=== PATIENT | female | born 1985 | race Caucasian/White ===

== ENCOUNTER 2020-08-09 04:04 | Inpatient (IN) ==
[2020-08-09] MEDS ORDERED: PENICILLIN G POTASSIUM 6 MU in DEXTROSE 5% 250 ML IV STA (05:24)
[2020-08-09] MEDS ORDERED: PENICILLIN G POTASSIUM 3 MU in DEXTROSE 5% 100 ML IV PRN (05:24)
[2020-08-09] MEDS ORDERED: OXYTOCIN 30 UNITS/500 ML BAG IV PRN ×3 (05:24→21:01)
[2020-08-09 06:08] LABS: Hematocrit (blood only) 35.7 % (37-47); Hemoglobin 12.4 g/dL (12.0-16.0); Mean Corpuscular Hemoglobin 32.1 pg (25-34); Mean Corpuscular Hgb Conc 34.7 g/dL (32-36); Mean Corpuscular Volume 92.5 fL (80-100); Mean Platelet Volume 11.3 fL (7.4-10.4); Platelet Count 150 K/uL (130-400); RDW Coefficient of Variation 13.4 % (11.5-14.5); RDW Standard Deviation 45.1 fL (36.4-46.3); Red Blood Count 3.86 M/uL (4.2-5.4)
--- NOTE | 2020-08-09 08:16 | History & Physical Report ---
Date of Service August 09, 2020 Assessment & Plan (1) Supervision of normal first : Admit to L&D. Labs, EFM/toco. COVID swab. IV access. Patient elects to give full 6 hours after ROM to see if active labor begins; if not, she is agreeable to starting pitocin. Admission and Anticipated Discharge Date Admission Date: August 09, 2020 History of Present Illness Chief Complaint: SROM Primary Care Provider: NO PCP 34yo @ 40 08/13, rupture of membranes 2:40 this morning. Clear fluid. Contractions have picked up since. + movement, no vaginal bleeding. uncomplicated. Allergies Allergy/AdvReac Type Severity Reaction Status Date / Time No Known Allergies Allergy Verified 08/09/20 04:35 Home Medications Medication Instructions Recorded Confirmed Type prenat.vits,kaci,bvt-ukbk-hdbzv 1 tab PO DAILY 09/04/19 08/09/20 History Patient History Medical History Encounter for anatomic survey Encounter for pre-operative examination Miscarriage Missed ab Surgical History H/O tooth extraction with sedation Family History Grandfather (Maternal) Heart disease Father Prostate cancer Social History Smoking Status: Never smoker Second Hand Exposure: Yes (hx as a child); Hx Alcohol Use: No Hx Substance Use: No Preferred Language: Yemeni Communication Ability: Effective Visual Impairment: No Limitations Special Needs Teacher Required: No Beliefs That Will Affect Care: None marital status: marital status details: Rubens (31) [phone] Current Living Situation: Spouse Current Living Situation Comment: lives with spouse and 1 dog. 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 No s/s chorio or abruption. Skin: no rashes, warm and dry Psychiatric: A+Ox3, euthymic affect Results & Data ([facility]) Vital Signs (Past 12 Hours) Vital Signs Temp Pulse Resp BP 08/09/20 07:30 36.5 C 64 20 117/76 08/09/20 06:20 36.6 C 18 08/09/20 04:39 36.6 C 83 18 116/78 08/09/20 04:18 83 116/78 Coding Level of Care Code None Diagnoses Supervision of normal first Z34.00
[2020-08-09] MEDS: LACTATED RINGER'S 1,000 ML IV PRN ×2 (09:04→14:31)
[2020-08-09] MEDS: OXYTOCIN 30 UNITS/500 ML BAG IV PRN ×2 (09:09→20:19)
--- NOTE | 2020-08-09 12:21 | Labor Progress Brief Note ---
Date of Service August 09, 2020 Subjective Ctx picking up, in room on exercise ball. Doing well. FHT Cat 1 [place] Q 2 Pit at 7 Continue labor. Assessment & Plan Admission and Anticipated Discharge Date Admission Date: August 09, 2020 Results & Data ([facility]) Vital Signs (Past 12 Hours) Vital Signs Temp Pulse Resp BP 08/09/20 11:17 59 L 121/71 08/09/20 11:16 36.3 C L 20 08/09/20 10:07 74 118/77 08/09/20 09:11 75 120/75 08/09/20 07:30 36.5 C 64 20 117/76 08/09/20 06:20 36.6 C 18 08/09/20 04:39 36.6 C 83 18 116/78 08/09/20 04:18 83 116/78 Coding Level of Care Code None
[2020-08-09] MEDS ORDERED: BUPIVACAINE 0.25% 30 ML VIAL ONE (14:07)
[2020-08-09] MEDS ORDERED: ePHEDrine sulfate 50 MG/ML AMP ONE (14:07)
[2020-08-09] MEDS ORDERED: SODIUM CHLORIDE 0.9% INJ 10 ML VIAL ONE (14:07)
[2020-08-09] MEDS ORDERED: fentaNYL citrate 100 MCG/2 ML VIAL ONE (14:08)
[2020-08-09] MEDS ORDERED: fentaNYL 2MCG/ML ROPIVACAINE 1.25MG/ML 100 ML BAG EPI ONE (14:08)
--- NOTE | 2020-08-09 14:34 | Anesthesiology Consultation ---
Date of Service August 09, 2020 Assessment & Plan (1) Encounter for pre-operative examination: Chart Review Chart Review: Acceptable Risk for Labor Epidural Consults Requested none ASA ASA2 Proposed Anesthesia Anesthesia Type: Labor Epidural Risk / Benefits Reviewed With: PT / POA / Parent / Guardian, Accepts Plan and Informed Consent Obtained History Height/Weight Height: 5 ft 8 in Weight: 90.628 kg Allergies Allergy/AdvReac Type Severity Reaction Status Date / Time No Known Allergies Allergy Verified 08/09/20 04:35 Medications Home Medications Medication Instructions Recorded Confirmed Last Taken prenat.vits,kaci,ghd-mdoa-hfpns 1 tab PO DAILY 09/04/19 08/09/20 08/08/20 22:00 Active Medications Generic Name Dose Route Start Last Admin Trade Name Freq PRN Reason Stop Dose Admin Oxytocin 30 units in 500 mls @ 11 mls/hr 08/09/20 05:24 08/09/20 13:44 Pitocin IV 08/11/20 05:23 0.66 units/hr .Q24H PRN 11 mls/hr Labor Induction/Augmentation Titration Protocol 0.66 UNITS/HR Lactated Ringer's 1,000 mls @ 125 mls/hr 08/09/20 05:24 08/09/20 14:31 Lr IV 08/11/20 05:23 999 mls/hr .Q8H PRN Administration L&D Protocol Protocol Past Medical History Medical History Encounter for anatomic survey Encounter for pre-operative examination Miscarriage Missed ab Exercise / Class Metabolic Activity II 4-5 Yardwork/Stairs/Walk up hill Past Family History Family History Grandfather (Maternal) Heart disease Father Prostate cancer Past Surgical History Surgical History H/O tooth extraction with sedation Past Anesthesia History No Hx of Anesthesia Complications and No Family Hx of Anesthesia Complications History of PONV No Hx of PONV and No Hx of Motion Sickness Social History Smoking Status: Never smoker Hx Alcohol Use: No Alcohol type: beer and wine alcohol intake frequency: holidays/special occasions only Hx Substance Use: No substance use type: does not use Physical Exam Vital Signs Last Vital Signs Temp 97.3 F L 08/09/20 11:16 Pulse 56 L 08/09/20 13:08 Resp 20 08/09/20 11:16 BP 119/66 08/09/20 13:08 ENMT Mouth: no dentition abnormality Thyromental Distance: > or= 3.5 Finger Breadths Mallampati Class: II Neck normal visual inspection Respiratory normal respiratory effort Auscultation: lungs clear to auscultation bilaterally Cardiovascular Rate/Rhythm: regular rate and regular rhythm Testing Laboratory Results 08/09/20 05:48
[2020-08-09] MEDS ORDERED: NALOXONE HCL 0.4 MG/1 ML VIAL/CARP IV PRN (14:52)
[2020-08-09] MEDS ORDERED: diphenhydrAMINE 50 MG/ML VIAL IV PRN (14:52)
[2020-08-09] MEDS ORDERED: fentaNYL 2MCG/ML ROPIVACAINE 1.25MG/ML 100 ML BAG EPI PRN (14:52)
[2020-08-09] MEDS ORDERED: ePHEDrine sulfate 50 MG/ML AMP IV PRN (14:52)
[2020-08-09] MEDS ORDERED: NALOXONE HCL 1 MG in SODIUM CHLORIDE 0.9% 1000ML 1,000 ML IV PRN (14:52)
[2020-08-09] MEDS ORDERED: ONDANSETRON INJ 2 MG/ML 2 ML VIAL IV PRN (14:52)
--- NOTE | 2020-08-09 16:13 | Labor Progress Brief Note ---
Date of Service August 09, 2020 Subjective Comfortable with epidural. FHT Cat 1 [place] Q 3 SVE 8/100/0 Continue labor. Assessment & Plan Admission and Anticipated Discharge Date Admission Date: August 09, 2020 Results & Data ([facility]) Vital Signs (Past 12 Hours) Vital Signs Temp Pulse Resp BP Pulse Ox 08/09/20 16:09 62 98 08/09/20 16:04 78 100 08/09/20 16:01 48 L 111/62 08/09/20 15:59 51 L 97 08/09/20 15:54 54 L 97 08/09/20 15:49 56 L 98 08/09/20 15:46 54 L 111/64 08/09/20 15:44 52 L 98 08/09/20 15:39 51 L 97 08/09/20 15:34 51 L 97 08/09/20 15:31 51 L 123/69 08/09/20 15:29 52 L 99 08/09/20 15:24 51 L 98 08/09/20 15:19 50 L 98 08/09/20 15:17 48 L 115/63 08/09/20 15:14 53 L 99 08/09/20 15:09 52 L 99 08/09/20 15:04 51 L 99 08/09/20 14:59 56 L 98 08/09/20 14:55 56 L 113/63 08/09/20 14:54 53 L 97 08/09/20 14:53 54 L 117/63 08/09/20 14:51 51 L 112/64 08/09/20 14:49 55 L 117/69 99 08/09/20 14:44 62 98 08/09/20 14:39 80 100 08/09/20 14:34 61 100 08/09/20 13:08 36.7 C 56 L 20 119/66 08/09/20 11:17 59 L 121/71 08/09/20 11:16 36.3 C L 20 08/09/20 10:15 36.7 C 20 08/09/20 10:07 74 118/77 08/09/20 09:11 75 120/75 08/09/20 07:30 36.5 C 64 20 117/76 08/09/20 06:20 36.6 C 18 08/09/20 04:39 36.6 C 83 18 116/78 08/09/20 04:18 83 116/78 Coding Level of Care Code None
--- NOTE | 2020-08-09 20:50 | Delivery Summary ---
Vaginal Delivery Summary Date of Service August 09, 2020 Vaginal Delivery Summary and 2nd Degree LAC Vaginal Delivery Summary: Pre-delivery diagnoses: 34yo @ 40 1/, spontaneous labor Post-delivery diagnoses: same, mild shoulder dystocia Procedure: spontaneous vaginal delivery, repair of 1st degree perineal laceration Surgeon: Shara Alba DO Complications: none Findings: Viable male . Apgars: 8/9. Weight pending, please see nursery records. Estimated blood loss: 500ml Description of delivery: The patient progressed to complete with epidural anesthesia. She then began to push. She spontaneously vaginally delivered a viable from the cephalic presentation. The head delivered in MAGALYS position. Nuchal cord x 1, easily reduced. The anterior shoulder did not deliver immediately. The patient was then placed in McRobert's maneuver, and shoulders were rotated clockwise. The posterior shoulder delivered, followed by anterior shoulder, then followed by the body. The baby was placed on mother's abdomen and a spontaneous cry was heard. The cord was doubly clamped and cut. A segment was retained for cord gases. Cord blood was obtained. The placenta was delivered spontaneously intact with a 3-vessel cord. The uterus and vagina were swept of clots and debris. IV pitocin was given. The uterus became firm. The cervix, vagina, and perineum were inspected and a 2nd degree perineal laceration with left vaginal extension was repaired with 3-0 vicryl. Additional [id number] stitch to obtain hemostasis in superficial sub-urethral laceration. Excellent hemostasis was observed. The mother and baby are recovering in stable and good condition in the room. Sponge, needle and instrument counts were correct x 2. Shara Alba DO [facility] [place] Vaginal Delivery Charge Vaginal Delivery Codes: 60578 global code for the antepartum, delivery, and post- Delivery Type Details: and 2nd Degree LAC
[2020-08-09] MEDS ORDERED: BENZOCAINE 20% AER SPR 82.5 GM CAN EXT PRN (21:01)
[2020-08-09] MEDS ORDERED: DIPHTHERIA/TETANUS/PERTUSSIS 0.5 ML SYR/VIAL IM ONE (21:01)
[2020-08-09] MEDS ORDERED: ACETAMINOPHEN 325 MG TAB PO PRN (21:01)
[2020-08-09] MEDS ORDERED: HYDROCORTISONE ACETATE 25 MG SUPP PR PRN (21:01)
[2020-08-09] MEDS ORDERED: bisacodyL 10 MG SUPP PR PRN (21:01)
[2020-08-09] MEDS ORDERED: oxyCODONE/ACETAMINOPHEN 5mg/325mg TAB PO PRN (21:01)
[2020-08-09] MEDS ORDERED: SUPERCREAM 0.870% 15 GM JAR EXT PRN (21:01)
[2020-08-09] MEDS: ceFAZolin 1000MG 1,000 MG/7.5 ML SYR IV SCH (21:16)
[2020-08-09] MEDS: IBUPROFEN 600 MG TAB PO PRN (21:50)
[2020-08-09 23:07] LABS: Base Excess Cord Venous Blood -3.5 mEq/L (-7.7-1.9); Cord Venous Blood HCO3 21 mmol/L (18.4-26.8); Cord Venous Blood PCO2 38 mmHg (30.4-57.2); Cord Venous Blood PO2 37 mmHg (14.1-43.3); Cord Venous Blood pH 7.37 (7.20-7.44); O2 Saturation Cord Venous Bld 74.6 % (<68)
[2020-08-10] MEDS: IBUPROFEN 600 MG TAB PO PRN ×4 (02:44→20:23)
[2020-08-10] MEDS: ceFAZolin 1000MG 1,000 MG/7.5 ML SYR IV SCH ×2 (05:25→13:13)
--- NOTE | 2020-08-10 05:37 | Obstetrical Progress Note ---
Date of Service August 10, 2020 Assessment & Plan (1) Supervision of normal first : S/p Day 1 - Feels well today. Eating well, voiding well, ambulating well. - Pain well-controlled with ibuprofen 600mg Q4H PRN. - Vital signs reviewed and WNL. - Hemoglobin reviewed. 12.4 --> 10.4 (today). - Blood Type: A+, antibody negative, GBS negative, Rubella Immune, COVID-19 negative - Continue routine care: encourage ambulation, monitor and control pain with Motrin PRN, continue regular OB diet, monitor lochia - Encourage breast feeding. - After discharge, will have 6-wk follow-up with Dr. Alba Admission and Anticipated Discharge Date Admission Date: August 09, 2020 Supervising Physician Co-Signing Physician Notes Resident Physician Supervision Note: I interviewed and examined the patient. Discussed with Dr. Fishman and agree with findings and plan as documented in the note. Any exceptions or clarifications are listed here: PPD#1, doing well. Anticipate DC home tomorrow. Documented By: Shara Alba, DO Subjective HPI Sylvia Gilbert is a 34 y/o female who is PPD 1 spontaneous vaginal delivery at 40w1d. She reports feeling well overall this morning. No abdominal cramping and mild pain well managed on analgesics. Voiding well. Tolerating meals overnight without difficulty. Patient has been able to ambulate some. passing gas and no bowel movement. Has persistent lochia with some improvement this morning. Currently . Review of Systems Review of Systems: ROS Denies fever or chills. Denies shortness of breath or cough. Denies chest pain. Denies breast pain. Denies dysuria. Denies leg pain or leg swelling. Physical Exam Physical Exam: PE General: Alert, oriented. No acute distress. Cardiac: Regular rate and rhythm. No murmurs. Respiratory: Clear to auscultation bilaterally a/p, no wheezes/rales/rhonchi. No increased work of breathing. Symmetrical chest rise. No respiratory distress. Abdomen: Soft, nontender, nondistended. Bowel sounds present. Uterus: Uterine fundus firm, palpable at umbilicus. Lower Extremities: No lower extremity edema or swelling. No deep calf pain. Nhan's negative bilaterally. Results & Data ([facility]) Vital Signs (Past 12 Hours) Vital Signs Temp Pulse Pulse Resp BP BP Pulse Ox 08/10/20 03:25 36.8 C 67 18 119/73 08/09/20 23:15 36.9 C 87 18 113/71 08/09/20 22:32 92 H 130/65 08/09/20 22:30 18 08/09/20 22:00 18 08/09/20 21:56 81 104/60 08/09/20 21:46 87 107/63 08/09/20 21:36 83 109/62 08/09/20 21:30 18 08/09/20 21:26 95 H 112/70 08/09/20 21:16 83 113/68 08/09/20 21:15 18 08/09/20 21:06 76 104/58 L 08/09/20 21:00 18 08/09/20 20:56 78 103/59 L 08/09/20 20:47 88 93/46 L 08/09/20 20:45 78 18 120/74 08/09/20 20:34 82 99 08/09/20 20:30 36.9 C 85 18 110/55 L 08/09/20 20:29 88 99 08/09/20 20:24 96 H 99 08/09/20 20:19 94 H 99 08/09/20 20:15 88 115/61 08/09/20 20:14 86 99 08/09/20 20:09 97 H 98 08/09/20 20:04 104 H 98 08/09/20 20:01 20 08/09/20 20:00 144 H 114/62 08/09/20 19:59 115 H 98 08/09/20 19:57 137 H 93 08/09/20 19:54 92 H 96 08/09/20 19:51 85 89 L 08/09/20 19:49 89 100 08/09/20 19:46 18 08/09/20 19:45 64 114/65 08/09/20 19:44 69 99 08/09/20 19:39 76 99 08/09/20 19:34 56 L 99 08/09/20 19:31 18 08/09/20 19:30 57 L 118/70 08/09/20 19:29 60 98 08/09/20 19:24 59 L 99 08/09/20 19:19 56 L 98 08/09/20 19:17 53 L 123/70 08/09/20 19:16 18 08/09/20 19:14 62 98 08/09/20 19:09 64 99 08/09/20 19:04 56 L 99 08/09/20 19:03 36.6 C 18 08/09/20 19:02 66 114/69 08/09/20 19:01 18 08/09/20 18:59 71 98 08/09/20 18:54 67 100 08/09/20 18:49 53 L 99 08/09/20 18:46 58 L 117/64 08/09/20 18:44 55 L 99 08/09/20 18:39 60 99 08/09/20 18:34 58 L 99 08/09/20 18:31 55 L 115/67 08/09/20 18:29 64 98 08/09/20 18:24 56 L 99 08/09/20 18:19 61 99 08/09/20 18:16 53 L 115/68 08/09/20 18:14 56 L 99 08/09/20 18:09 65 98 08/09/20 18:04 58 L 99 08/09/20 18:01 56 L 121/67 08/09/20 17:59 58 L 99 08/09/20 17:54 60 98 08/09/20 17:49 55 L 99 08/09/20 17:46 37.0 C 75 20 114/77 08/09/20 17:44 71 98 08/09/20 17:39 57 L 99 Resident Activity Tracking Resident Involvement: Resident Care Provided Care Provided: Adult Hospital Medicine
[2020-08-10 06:38] LABS: Hematocrit (blood only) 30.4 % (37-47); Hemoglobin 10.4 g/dL (12.0-16.0)
--- NOTE | 2020-08-10 07:34 | Anesthesia Procedure Note ---
Date of Service August 10, 2020 Anesthesia Post Epidural Note Vital Signs Vital Signs: Temp Pulse Resp BP Pulse Ox 36.8 C 67 18 119/73 99 08/10/20 03:25 08/10/20 03:25 08/10/20 03:25 08/10/20 03:25 08/09/20 20:34 Notes Mental Status: alert / awake / arousable and participated in evaluation Nausea / Vomiting: adequately controlled Pain: adequately controlled Airway Patency, RR, SpO2: stable & adequate BP & HR: stable & adequate Hydration State: stable & adequate Neuraxial Anesthesia: was administered and sensory block is resolving Anesthetic Complications: no major complications apparent and Pt Satisfied with anesthetic care Epidural: Removed without complications and With tip intact
[2020-08-10] MEDS: DOCUSATE SODIUM 100 MG CAP PO SCH ×4 (08:30→20:22)
[2020-08-10] MEDS: PRENATAL VITAMIN 1 TAB PO SCH (08:30)
[2020-08-10] MEDS ORDERED: bisacodyL 5 MG TABEC PO SCH (20:00)
[2020-08-10 20:14] VITALS: O2SAT 98
[2020-08-11 01:37] VITALS: BP 116/74; PULSE 118; TEMP 98.2
[2020-08-11] MEDS: IBUPROFEN 600 MG TAB PO PRN ×2 (04:11→08:30)
--- NOTE | 2020-08-11 05:19 | Obstetrical Progress Note ---
Date of Service August 11, 2020 Assessment & Plan (1) Supervision of normal first : S/p Day 2 - Feels well today. Eating well, voiding well, ambulating well. - Pain well-controlled with ibuprofen 600mg Q4H PRN. - Vital signs reviewed and WNL. - Hemoglobin reviewed. 12.4 --> 10.4 (yesterday). - Blood Type: A+, antibody negative, GBS negative, Rubella Immune, COVID-19 negative - Continue routine care: encourage ambulation, monitor and control pain with Motrin PRN, continue regular OB diet, monitor lochia - Encourage breast feeding. - Pt counselled on discharge instructions - After discharge, will have 6-wk follow-up with Dr. Alba Admission and Anticipated Discharge Date Admission Date: August 09, 2020 Supervising Physician Co-Signing Physician Notes Resident Physician Supervision Note: I interviewed and examined the patient. Discussed with Dr. Fishman and agree with findings and plan as documented in the note. Any exceptions or clarifications are listed here: Discharge instructions given, patient expresses understanding. Documented By: Sylvia Dailey MD Subjective HPI Sylviadiaz Gilbert is a 34 y/o female who is PPD 2 spontaneous vaginal delivery at 40w1d. She reports feeling well overall this morning. No abdominal cramping and mild pain well managed on analgesics. Voiding well. Tolerating meals overnight without difficulty. Patient has been able to ambulate some. passing gas and no bowel movement. Has persistent lochia with some improvement this morning. Currently . Review of Systems Review of Systems: ROS Denies fever or chills. Denies shortness of breath or cough. Denies chest pain. Denies breast pain. Denies dysuria. Denies leg pain or leg swelling. Physical Exam Physical Exam: PE General: Alert, oriented. No acute distress. Cardiac: Regular rate and rhythm. No murmurs. Respiratory: Clear to auscultation bilaterally a/p, no wheezes/rales/rhonchi. No increased work of breathing. Symmetrical chest rise. No respiratory distress. Abdomen: Soft, nontender, nondistended. Bowel sounds present. Uterus: Uterine fundus firm, palpable 2cm below umbilicus. Lower Extremities: No lower extremity edema or swelling. No deep calf pain. Nhan's negative bilaterally. Results & Data ([facility]) Vital Signs (Past 12 Hours) Vital Signs Temp Pulse Resp BP Pulse Ox 08/11/20 01:00 36.8 C 118 H 18 116/74 98 08/10/20 20:13 37 C 78 18 117/78 98 Resident Activity Tracking Resident Involvement: Resident Care Provided Care Provided: Adult Hospital Medicine
[2020-08-11] MEDS: DOCUSATE SODIUM 100 MG CAP PO SCH (08:30)
[2020-08-11] MEDS: PRENATAL VITAMIN 1 TAB PO SCH (08:30)
== END 2020-08-11 11:05 | disposition home or self-care (01) | DRG 807 ==
LOC: OPB 04:04 → 4S1 04:07 → 4S2 23:04

== ENCOUNTER 2022-10-20 07:44 | Inpatient (IN) ==
[2022-10-20] MEDS ORDERED: OXYTOCIN 30 UNITS/500 ML BAG IV PRN ×3 (09:17→20:39)
[2022-10-20] MEDS ORDERED: LIDOCAINE 1% LOCAL 20 ML VIAL INFIL PRN (09:17)
[2022-10-20] MEDS: LACTATED RINGER'S 1,000 ML IV PRN ×3 (09:45→18:12)
--- NOTE | 2022-10-20 10:22 | History & Physical Report ---
Date of Service October 20, 2022 Assessment & Plan (1) Polyhydramnios affecting : Plan: IUP at 39+ weeks here for IOL because of polyhydramnios cervix favorable so will start pitocin induction per protocol epidural when requested anticipate vaginal Admission and Anticipated Discharge Date Admission Date: October 20, 2022 History of Present Illness Primary Care Provider: NO PCP Patient is a 37 yo EDC 10/25/22 who presents at 39+ weeks for IOL because of polyhydramnios. most recent DVP yesterday was 10.3. also complicated by diet controlled GDM and AMA. antepartum testing has been reassuring. GBS negative Allergies Allergy/AdvReac Type Severity Reaction Status Date / Time No Known Allergies Allergy Verified 10/19/22 11:35 Home Medications Medication Instructions Recorded Confirmed Type prenat.vits,kaci,haa-uygj-tpfcb 1 tab PO DAILY 09/04/19 10/20/22 History acetone (urine) test (Ketone Urine #50 ea 08/22/22 10/19/22 Rx Test strips) blood sugar diagnostic (OneTouch #150 ea 08/22/22 10/19/22 Rx Verio test strips) blood-glucose meter (OneTouch #1 ea 08/22/22 10/19/22 Rx Verio Reflect Meter) lancets 33 gauge (OneTouch Delica #150 ea 08/22/22 10/19/22 Rx Lancets) ferrous sulfate 325 mg (65 mg 325 mg PO Q OTHER DAY 10/20/22 10/20/22 History iron) tablet (Iron (ferrous sulfate)) Patient History Medical History Encounter for anatomic survey Encounter for pre-operative examination Miscarriage Missed ab Surgical History H/O dilation and curettage H/O tooth extraction Family History Grandfather (Maternal) Heart disease Father Prostate cancer Denies family history of Ovarian cancer Breast cancer Colorectal cancer Social History Smoking Status: Never smoker Second Hand Exposure: No; Do You Dip or Chew Tobacco: No; Tobacco Cessation Education Requested by Patient: No Hx Alcohol Use: No Hx Substance Use: No Preferred Language: Scottish Communication Ability: Effective Visual Impairment: No Limitations Hearing Ability: Normal 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 Other Information That Helps Us Care for You: No Feels Safe at Home: Yes Safety Concerns: Feels Safe At This Time Assistive Devices: None Review of Systems All systems reviewed & are unremarkable except as noted in HPI & below Physical Exam Constitutional: WD/WN, vitals as above Psychiatric: A+Ox3, euthymic affect Genitourinary: OB Exam Abdomen: + vertex, + estimated weight (7-8 pounds) and + irregular contractions Manual OB Exam: + cervical dilation (2- 3cm), + cervical effacement 60% and + station -2 OB Exam Monitor Tracing: + external FHT monitor used, + external uterine monitor used, + category I and + normal FHT variability Results & Data Vital Signs (Past 12 Hours) Vital Signs Temp Pulse Resp BP 10/20/22 07:52 98.1 F 84 16 130/70 10/20/22 10:04 69 108/71 10/20/22 09:28 73 108/72 10/20/22 07:48 16 10/20/22 07:48 98.1 F 16 10/20/22 07:47 84 130/71 Code Status & VTE Plan VTE Prophylaxis Plan VTE Prophylaxis will be ordered: No Coding Level of Care Code None Diagnoses Polyhydramnios affecting O40.9XX0
[2022-10-20] MEDS ORDERED: ePHEDrine sulfate 50 MG/ML AMP ONE (13:16)
[2022-10-20] MEDS ORDERED: fentaNYL citrate PF 100 MCG/2 ML VIAL ONE (13:16)
[2022-10-20] MEDS ORDERED: SODIUM CHLORIDE 0.9% PF INJ 10 ML VIAL ONE (13:17)
[2022-10-20] MEDS ORDERED: LIDOCAINE 2%/EPINEPHRINE 1:200,000 20 ML PF ONE (13:17)
[2022-10-20] MEDS ORDERED: BUPIVACAINE 0.25% PF 30 ML VIAL ONE (13:17)
[2022-10-20] MEDS ORDERED: fentaNYL 2MCG/ML ROPIVACAINE 1.25MG/ML 100 ML BAG EPI ONE (13:17)
--- NOTE | 2022-10-20 13:35 | Anesthesiology Consultation ---
Date of Service October 20, 2022 Assessment & Plan ASA ASA2 Proposed Anesthesia Anesthesia Type: Labor Epidural Risk / Benefits Reviewed With: PT / POA / Parent / Guardian, Accepts Plan and Informed Consent Obtained History Height/Weight Height: 5 ft 8 in Weight: 86.636 kg Allergies Allergy/AdvReac Type Severity Reaction Status Date / Time No Known Allergies Allergy Verified 10/19/22 11:35 Medications Home Medications Medication Instructions Recorded Confirmed Last Taken prenat.vits,kaci,wxa-vxrh-ezytg 1 tab PO DAILY 09/04/19 10/20/22 10/19/22 21:00 acetone (urine) test (Ketone Urine #50 ea 08/22/22 10/19/22 Unknown Test strips) blood sugar diagnostic (OneTouch #150 ea 08/22/22 10/19/22 Unknown Verio test strips) blood-glucose meter (OneTouch #1 ea 08/22/22 10/19/22 Unknown Verio Reflect Meter) lancets 33 gauge (OneTouch Delica #150 ea 08/22/22 10/19/22 Unknown Lancets) ferrous sulfate 325 mg (65 mg 325 mg PO Q OTHER DAY 10/20/22 10/20/22 10/19/22 08:00 iron) tablet (Iron (ferrous sulfate)) Active Medications Generic Name Dose Route Start Last Admin Trade Name Freq PRN Reason Stop Dose Admin Lactated Ringer's 1,000 mls @ 125 mls/hr 10/20/22 09:17 10/20/22 13:40 Lr IV 10/22/22 09:16 999 mls/hr .Q8H PRN Administration L&D Protocol Protocol Oxytocin 30 units in 500 mls @ 13 mls/hr 10/20/22 09:24 10/20/22 12:45 Pitocin IV 10/22/22 09:23 0.78 units/hr .Q24H PRN 13 mls/hr Labor Induction/Augmentation Titration Protocol 0.78 UNITS/HR Past Medical History Medical History Encounter for anatomic survey Encounter for pre-operative examination Miscarriage Missed ab Supervision of normal first Exercise / Class Metabolic Activity II 4-5 Yardwork/Stairs/Walk up hill Past Family History Family History Grandfather (Maternal) Heart disease Father Prostate cancer Denies family history of Ovarian cancer Breast cancer Colorectal cancer Past Surgical History Surgical History H/O dilation and curettage H/O tooth extraction with sedation Past Anesthesia History No Hx of Anesthesia Complications and No Family Hx of Anesthesia Complications History of PONV No Hx of PONV and No Hx of Motion Sickness Social History Smoking Status: Never smoker Do You Dip or Chew Tobacco: No Hx Alcohol Use: No Alcohol type: beer and wine alcohol intake frequency: holidays/special occasions only Hx Substance Use: No substance use type: does not use Review of Systems denies fever/cough/ colds/ chest pain/ SOB/ OPAL denies OPAL Physical Exam Vital Signs Last Vital Signs Temp 36.7 C 10/20/22 11:35 Pulse 62 10/20/22 13:29 Resp 16 10/20/22 11:35 BP 121/69 10/20/22 13:21 Pulse Ox 100 10/20/22 13:29 ENMT Mouth: no TMJ abnormality and no dentition abnormality Thyromental Distance: > or= 3.5 Finger Breadths Mallampati Class: II Neck neck extension not limited Respiratory normal respiratory effort; no respiratory distress Auscultation: lungs clear to auscultation bilaterally Cardiovascular Rate/Rhythm: regular rate and regular rhythm Neurologic moves all extremities Psychiatric Orientation: alert and oriented x 3
[2022-10-20] MEDS ORDERED: fentaNYL 2MCG/ML ROPIVACAINE 1.25MG/ML 100 ML BAG EPI PRN (13:36)
[2022-10-20] MEDS ORDERED: NALOXONE HCL 1 MG in SODIUM CHLORIDE 0.9% 1000ML 1,000 ML IV PRN (13:36)
[2022-10-20] MEDS ORDERED: NALOXONE HCL 0.4 MG/1 ML VIAL/CARP IV PRN (13:36)
[2022-10-20] MEDS ORDERED: diphenhydrAMINE 50 MG/ML VIAL IV PRN (13:36)
[2022-10-20] MEDS ORDERED: NALBUPHINE HCL INJ 10 MG/ML AMP IV PRN (13:36)
[2022-10-20] MEDS ORDERED: ONDANSETRON INJ 2 MG/ML 2 ML VIAL IV PRN (13:36)
[2022-10-20] MEDS ORDERED: ePHEDrine sulfate 50 MG/ML AMP IV PRN (13:36)
[2022-10-20 14:03] LABS: Hematocrit (blood only) 36.3 % (37.0-47.0); Hemoglobin 12.6 g/dl (12.0-16.0); Mean Corpuscular Hemoglobin 32.6 pg (25.0-34.0); Mean Corpuscular Hgb Conc 34.7 g/dL (32.0-36.0); Mean Corpuscular Volume 93.8 fL (80.0-100.0); Mean Platelet Volume 11.5 fL (9.4-12.4); Platelet Count 168 K/uL (130-400); RDW Coefficient of Variation 13.2 % (11.5-14.5); RDW Standard Deviation 45.3 fL (36.4-46.3); Red Blood Count 3.87 M/uL (4.20-5.40); White Blood Count 6.63 K/ul (4.8-10.8)
[2022-10-20] MEDS ORDERED: BENZOCAINE 20% AER SPR 82.5 GM CAN EXT PRN (20:39)
[2022-10-20] MEDS ORDERED: bisacodyL 10 MG SUPP PR PRN (20:39)
[2022-10-20] MEDS ORDERED: ACETAMINOPHEN 325 MG TAB PO PRN (20:39)
[2022-10-20] MEDS ORDERED: oxyCODONE/ACETAMINOPHEN 5mg/325mg TAB PO PRN (20:39)
[2022-10-20] MEDS ORDERED: DIPHTHERIA/TETANUS/PERTUSSIS 0.5mL SYR/VIAL (Age 7+yrs) IM ONE (20:39)
[2022-10-20] MEDS ORDERED: HYDROCORTISONE ACETATE 25 MG SUPP PR PRN (20:39)
--- NOTE | 2022-10-20 21:11 | Delivery Summary ---
Vaginal Delivery Summary Date of Service October 20, 2022 Vaginal Delivery Summary and 1st Degree LAC Patient is a 37-year-old 2 para 1-0-0-1 female who presents at39 weeks for induction because of polyhydramnios. She received Pitocin induction. Epidural analgesia was effective. Membranes were ruptured for a large amount of clear fluid. She progressed to full dilation with the urge to push. She pushed effectively through 3 contractions over intact perineum for delivery of a viable female infant. After the head was delivered the rest of the infant was delivered without maternal effort. She was placed on the mother's abdomen for further attention and drying. She was vigorous moving all 4 limbs. Cord was clamped and cut after 1 minute. After cord blood was obtained, the placenta was expressed intact with a three-vessel cord. bleeding was controlled with dilute Pitocin and fundal massage. A first-degree perineal laceration was repaired with 3-0 chromic in the usual fashion. A right superficial labial laceration was not bleeding and therefore not repaired. Estimated blood loss was 250 cc. Mother and infant were doing well after delivery. [facility] Vaginal Delivery Charge Delivery Type Details: and 1st Degree LAC
[2022-10-20] MEDS: DOCUSATE SODIUM 100 MG CAP PO SCH (21:39)
[2022-10-20] MEDS: IBUPROFEN 600 MG TAB PO PRN (22:31)
--- NOTE | 2022-10-20 22:34 | Anesthesia Procedure Note ---
Date of Service October 20, 2022 Anesthesia Post Epidural Note Vital Signs Vital Signs: Temp Pulse Resp BP Pulse Ox O2 Del Method 37.1 C 81 18 115/59 L 100 Room Air 10/20/22 19:11 10/20/22 22:26 10/20/22 21:56 10/20/22 22:26 10/20/22 20:10 10/20/22 19:11 Pain Intensity Abdomen: Pain Intensity: 0 Notes Mental Status: alert / awake / arousable and participated in evaluation Nausea / Vomiting: adequately controlled Pain: adequately controlled Airway Patency, RR, SpO2: stable & adequate BP & HR: stable & adequate Hydration State: stable & adequate Neuraxial Anesthesia: was administered and sensory block is resolving Anesthetic Complications: no major complications apparent and Pt Satisfied with anesthetic care Epidural: Removed without complications and With tip intact
[2022-10-21] MEDS: IBUPROFEN 600 MG TAB PO PRN ×3 (04:40→16:52)
[2022-10-21 06:38] LABS: Hematocrit (blood only) 32.9 % (37.0-47.0); Hemoglobin 11.4 g/dl (12.0-16.0); Mean Corpuscular Hemoglobin 32.3 pg (25.0-34.0); Mean Corpuscular Hgb Conc 34.7 g/dL (32.0-36.0); Mean Corpuscular Volume 93.2 fL (80.0-100.0); Mean Platelet Volume 10.7 fL (9.4-12.4); Platelet Count 150 K/uL (130-400); RDW Coefficient of Variation 13.2 % (11.5-14.5); RDW Standard Deviation 44.8 fL (36.4-46.3); Red Blood Count 3.53 M/uL (4.20-5.40); White Blood Count 7.89 K/ul (4.8-10.8)
--- NOTE | 2022-10-21 07:46 | Obstetrical Progress Note ---
Date of Service October 21, 2022 Assessment & Plan (1) Encounter for care and examination after delivery: satisfactory course continue current care plan Subjective Ambulation: ambulating normally Voiding: no voiding problems Passing Gas:: Yes Diet Tolerance:: regular diet Lochia:: Small Feeding Type:: breast feeding Review of Systems All systems reviewed & are unremarkable except as noted in HPI & below Physical Exam Constitutional WD/WN, vitals as above Psychiatric A+Ox3, euthymic affect Genitourinary OB Exam Abdomen: + fundal height Fundus: + firm and + relation to umbilicus (1 below U) Results & Data Vital Signs (Past 12 Hours) Vital Signs Temp Pulse Pulse Resp BP BP Pulse Ox 10/21/22 03:27 98.4 F 77 16 96/59 L 97 10/20/22 22:45 98.1 F 81 18 107/65 97 10/20/22 22:25 18 10/20/22 21:56 18 10/20/22 21:25 18 10/20/22 21:10 18 10/20/22 20:55 18 10/20/22 20:40 18 10/20/22 20:25 18 10/20/22 22:26 81 115/59 L 10/20/22 22:11 85 110/57 L 10/20/22 21:56 84 110/59 L 10/20/22 21:42 73 102/57 L 10/20/22 21:27 86 120/65 10/20/22 21:11 74 108/58 L 10/20/22 20:41 75 119/58 L 10/20/22 20:29 93 H 123/60 10/20/22 20:10 136 H 100 10/20/22 20:09 156 H 91 10/20/22 20:05 127 H 153/70 H 100 10/20/22 20:00 137 H 20 100 10/20/22 19:55 95 H 100 10/20/22 19:50 92 H 100 10/20/22 19:49 86 123/63 O2 Del Method 10/21/22 03:27 Room Air 10/20/22 22:45 Room Air 10/20/22 22:25 10/20/22 21:56 10/20/22 21:25 10/20/22 21:10 10/20/22 20:55 10/20/22 20:40 10/20/22 20:25 10/20/22 22:26 10/20/22 22:11 10/20/22 21:56 10/20/22 21:42 10/20/22 21:27 10/20/22 21:11 10/20/22 20:41 10/20/22 20:29 10/20/22 20:10 10/20/22 20:09 10/20/22 20:05 10/20/22 20:00 10/20/22 19:55 10/20/22 19:50 10/20/22 19:49
[2022-10-21] MEDS: DOCUSATE SODIUM 100 MG CAP PO SCH (07:51)
[2022-10-21] MEDS ORDERED: PRENATAL VITAMIN 1 TAB PO SCH (08:00)
[2022-10-21] MEDS ORDERED: bisacodyL 5 MG TABEC PO SCH (20:00)
== END 2022-10-21 20:40 | disposition home or self-care (01) | DRG 807 ==
LOC: 4S1 07:44 → 4E2 22:40
DX: O70.0 First degree perineal laceration during delivery; Z20.822 Contact with and (suspected) exposure to COVID-19; Z3A.39 39 weeks gestation of pregnancy; Z87.59 Personal history of other complications of pregnancy, childbirth and the puerperium; Z37.0 Single live birth; O40.3XX0 Polyhydramnios, third trimester, not applicable or unspecified; O24.420 Gestational diabetes mellitus in childbirth, diet controlled